=== PATIENT | female | born 1960 | race African-American/Black ===

== ENCOUNTER 2016-09-15 09:30 | Emergency (ER) | payer MEDICAID ==
[~2016-09-15] VITALS: Ht 165.1 cm; Wt 68.8 kg
[~2016-09-15 09:30] MED LIST: FLUT16SP15 BOTHNSTRLS; LORA10TA7 PO
[2016-09-15] MEDS ORDERED: ASPI-1035 PO (09:54)
[2016-09-15] MEDS ORDERED: AMLO2.5T45 PO (09:54)
[2016-09-15] MEDS ORDERED: KETOROLAC 60MG/2ML VIAL IM ONE (11:45)
[2016-09-15 11:50] VITALS: BP 146/84
== END 2016-09-15 12:35 | disposition home or self-care (01) ==
LOC: ER 12:13
DX: B37.0 Candidal stomatitis (principal); L03.311 Cellulitis of abdominal wall; I10 Essential (primary) hypertension; F17.200 Nicotine dependence, unspecified, uncomplicated; F12.10 Cannabis abuse, uncomplicated; Z72.0 Tobacco use; Z79.82 Long term (current) use of aspirin; Z90.710 Acquired absence of both cervix and uterus; Z98.890 Other specified postprocedural states; Y93.89 Activity, other specified; W57.XXXA Bitten or stung by nonvenomous insect and other nonvenomous arthropods, initial encounter; Y99.8 Other external cause status; Y92.89 Other specified places as the place of occurrence of the external cause
CPT/HCPCS: 96372; 99283; J1885

== ENCOUNTER 2017-01-29 10:30 | Emergency (ER) | payer MEDICAID ==
[~2017-01-29] VITALS: Ht 162.6 cm; Wt 64.0 kg
[~2017-01-29 10:30] MED LIST changes: +AMLO2.5T45 PO; +ASPI-1159 PO
[2017-01-29] MEDS ORDERED: KETOROLAC 60MG/2ML VIAL IM ONE (14:30)
[2017-01-29 15:39] VITALS: BP 146/84
== END 2017-01-29 15:45 | disposition home or self-care (01) ==
LOC: ER 11:10
DX: H66.92 Otitis media, unspecified, left ear (principal); I10 Essential (primary) hypertension; F12.10 Cannabis abuse, uncomplicated; Z79.82 Long term (current) use of aspirin
CPT/HCPCS: 96372; 99283; J1885

== ENCOUNTER 2022-01-03 13:17 | Emergency (ER) | payer MEDICAID ==
[~2022-01-03] VITALS: Ht 165.1 cm; Wt 63.9 kg
[~2022-01-03 13:17] MED LIST changes: -ASPI-1159 PO; +ASPI-1497 PO
[2022-01-03 13:34] VITALS: BP 107/68
[2022-01-03] MEDS ORDERED: ACETAMINOPHEN 325MG TABLET PO ONE (15:00)
[2022-01-03] MEDS ORDERED: IBUP-2029 MT (15:45)
== END 2022-01-03 16:04 | disposition home or self-care (01) ==
LOC: ER 13:17
DX: S93.692A Other sprain of left foot, initial encounter (principal); X58.XXXA Exposure to other specified factors, initial encounter; Y93.01 Activity, walking, marching and hiking; Y92.89 Other specified places as the place of occurrence of the external cause
CPT/HCPCS: 73630; 99283

== ENCOUNTER 2023-01-24 10:49 | Emergency (ER) | payer MEDICAID ==
[~2023-01-24] VITALS: Ht 165.1 cm; Wt 65.0 kg
[~2023-01-24 10:49] MED LIST changes: +IBUP-2029 MT
[2023-01-24 11:12] VITALS: BP 141/96; PULSE 73; RESP 18; TEMP 98.6; O2SAT 98
[2023-01-24] MEDS ORDERED: IBUP-2028 MT (12:47)
== END 2023-01-24 14:28 | disposition home or self-care (01) ==
LOC: ER 11:26
DX: M25.562 Pain in left knee (principal); I10 Essential (primary) hypertension; F12.10 Cannabis abuse, uncomplicated; Z90.710 Acquired absence of both cervix and uterus; Z98.890 Other specified postprocedural states; Z79.899 Other long term (current) drug therapy
CPT/HCPCS: 73562; 93971; 99284